=== PATIENT | female | born 1985 | race Caucasian/White ===

== ENCOUNTER 2020-12-21 00:02 | Emergency (ER) | payer BC ==
[~2020-12-21] VITALS: Ht 160 cm; Wt 94.8 kg
[2020-12-21 00:15] VITALS: BP 158/109
[2020-12-21] MEDS ORDERED: AUGMENTIN 875-1 EACH PO (00:23)
== END 2020-12-21 00:52 | disposition home or self-care (01) ==
LOC: M.ERS 00:02
DX: S60.222A Contusion of left hand, initial encounter (principal); W55.01XA Bitten by cat, initial encounter; Y93.89 Activity, other specified; Y92.89 Other specified places as the place of occurrence of the external cause; Y99.8 Other external cause status